=== PATIENT | female | born 1970 | race Caucasian/White ===

== ENCOUNTER 2018-03-05 06:29 | Observation (INO) | payer OTHER ==
--- NOTE | 2018-03-03 13:42 | Diagnostic Imaging Report ---
PROCEDURE: X-RAY CHEST, TWO VIEWS COMPARISON: None. INDICATIONS: PREOPERATIVE CHEST XRAY FOR CERVICAL SPINE SURGERY FINDINGS: LUNGS: No consolidations or edema.Incidental note of an azygous fissure. PLEURA: No effusions or pneumothorax. HEART \T\ MEDIASTINUM: The heart is within normal size-limits. BONES \T\ SOFT TISSUES: No acute findings. Cervical spine fusion hardware partially visualized. Bilateral breast implants. CONCLUSION: No acute thoracic abnormality. Dictated by: Reyes France M.D. on 03/03/2018 at 13:46 Electronically approved by: Reyes France M.D. on 03/03/2018 at 13:46
[2018-03-03 13:48] LABS: BASOPHILS % 0.7 % (0.0-1.0); EOSINOPHILS # (AUTO) 0.1 (0.0-0.4); EOSINOPHILS % 1.4 % (0.0-6.0); HEMATOCRIT 40.2 % (34.2-44.1); HEMOGLOBIN 13.7 g/dL (12.0-16.0); LYMPHOCYTES # (AUTO) 1.3 (1.0-3.2); LYMPHOCYTES % 31.8 % (18.0-39.1); MEAN CORPUSCULAR HEMOGLOBIN 31.4 pg (28-32); MEAN CORPUSCULAR HGB CONC 34.1 g/dL (31-35); MEAN CORPUSCULAR VOLUME 92.2 fL (81-99); MONOCYTES # (AUTO) 0.3 (0.2-0.8); MONOCYTES % 6.9 % (4.4-11.3); NEUTROPHILS # (AUTO) 2.5 (2.1-6.9); PLATELET COUNT 239 x10e3/uL (140-360); RED BLOOD COUNT 4.36 x10e6/uL (3.6-5.1); RED CELL DISTRIBUTION WIDTH 11.8 % (11.7-14.4)
[2018-03-03 14:08] LABS: INR 1.04; PARTIAL THROMBOPLASTIN TIME 25.1 seconds (23.8-35.5); PROTHROMBIN TIME 12.8 seconds (11.9-14.5)
[2018-03-03 14:18] LABS: ANION GAP 12.2 mmol/L (8-16); BLOOD UREA NITROGEN 11 mg/dL (7-26); BUN/CREATININE RATIO 14 (6-25); CALCIUM 9.6 mg/dL (8.4-10.2); CARBON DIOXIDE 27 mmol/L (22-29); CHLORIDE 107 mmol/L (98-107); CREATININE, SERUM 0.81 mg/dL (0.57-1.11); EST GLOMERULAR FILTRATION RATE > 60 ML/MIN (60-); GLUCOSE 92 mg/dL (74-118); POTASSIUM 4.2 mmol/L (3.5-5.1); SODIUM 142 mmol/L (136-145)
--- NOTE | 2018-03-03 19:26 | Diagnostic Imaging Report ---
PROCEDURE: C-SPINE AP AND LAT WITH FLEX AND EXT COMPARISON: Patients [facility], , C-SPINE 2 VIEWS AP LATERAL, 01/10/2012, 7:30. INDICATIONS: PREOPERATIVE XRAYS FOR CERVICAL SPINE SURGERY FINDINGS: C1 through T1 are visualized on the lateral view. Mild reversal of the cervical lordosis may be related muscle spasm or positioning. Re-demonstration of status post anterior fusion of C5-C6 with metallic plate and transfixing screws which are intact and in adequate alignment. There has been moderate interval bony fusion. No change in alignment in flexion view. There is approximately 2 mm anterolisthesis of C5 on C4 and C7 on C6 on extension view. The prevertebral soft tissues are not swollen. CONCLUSION: Status post anterior fusion of C5-C6 with moderate interval bony fusion. Intact hardware with adequate alignment. Minimal anterolisthesis of C5 on C4 and C7 on C6 on extension view only. Evert Nina M.D. Dictated by: Evert Nina M.D. on 03/03/2018 at 19:31 Electronically approved by: Evert Nina M.D. on 03/03/2018 at 19:31
[~2018-03-05] VITALS: Ht 154.9 cm; Wt 45.8 kg
[~2018-03-05 06:29] MED LIST: PROBIOTIC & AC1 EACH; Z.0.ALLEGRA ALLERG18 PO; Z.0.MULTIVITAMINS1 E; Z.0.PRILOSEC OTC20 M PO; Z.0.WELLBUTRIN XL300 PO
[2018-03-05] MEDS ORDERED: VANCOMYCIN 1GM/NS 250 ML 250 ML ONE (07:17)
[2018-03-05] MEDS ORDERED: ACETAMINOPHEN 1000 MG/100 ML 100 ML IV ONE (07:21)
[2018-03-05] MEDS ORDERED: LIDOCAINE HCL (LTA) 4 ML SOLN ONE (07:21)
[2018-03-05] MEDS ORDERED: GELATIN SPONGE SZ 100 ONE (07:36)
[2018-03-05] MEDS ORDERED: THROMBIN FOR SOLN 5,000 UNIT VIAL ONE (07:36)
[2018-03-05] MEDS ORDERED: BACITRACIN 50,000 UNIT VIAL ONE (07:36)
[2018-03-05] MEDS ORDERED: BUPIVACAINE 0.5%/EPI 30 ML SDV INJ ONE (07:36)
[2018-03-05] MEDS ORDERED: SCOPOLAMINE 1.5 MG PATCH ONE (08:30)
[2018-03-05] MEDS ORDERED: HYDROMORPHONE 2MG/ML INJ IV PRN (10:15)
[2018-03-05] MEDS ORDERED: MORPHINE SULFATE INJ 4 MG/ML INJ IM PRN (10:15)
[2018-03-05] MEDS ORDERED: MAGNESIUM/ALUMINUM/SIMETHICONE 30 ML UDC PO PRN (10:15)
[2018-03-05] MEDS ORDERED: ZOLPIDEM TARTRATE 5 MG TAB PO PRN (10:15)
[2018-03-05] MEDS ORDERED: PROMETHAZINE HCL (IM) 25 MG/ML VIAL IM PRN (10:15)
[2018-03-05] MEDS ORDERED: ACETAMINOPHEN 325 MG TAB PO PRN (10:15)
[2018-03-05] MEDS ORDERED: CEPACOL SORE THROAT LOZENGES PO PRN (10:15)
[2018-03-05] MEDS ORDERED: FENTANYL CITRATE/PF 100MCG/2 ML INJ ONE ×2 (10:26→18:03)
[2018-03-05] MEDS: VANCOMYCIN 1GM/NS 250 ML 250 ML IV SCH ×2 (11:00→23:29)
[2018-03-05] MEDS: LACTATED RINGER'S 1,000 ML IV SCH ×2 (11:00→20:32)
[2018-03-05 11:20] VITALS: BP 164/80
[2018-03-05 11:36] VITALS: BP 164/80
--- NOTE | 2018-03-05 13:34 | Operative Report ---
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 POSTOPERATIVE DIAGNOSIS: C6-7 disk herniation with radiculopathy below the level of previous C5-6 fusion, M50.123. PROCEDURES 1. C6-C7 anterior cervical diskectomy, microsurgical osteophyte resection and allograft fusion, 05428. 2. Preparation of [facility] cortical cancellous allograft, 84819. 3. C6-C7 anterior cervical plating with Synthes ZPN plate, 65255. 4. Removal of C5-6 plate, . 5. Exploration of C5-6 fusion, . ANESTHESIA: General. INDICATIONS: Patient is a 47-year-old woman who has previously undergone a C5-C6 anterior cervical diskectomy, fusion and plating by ne in the distant past with excellent results. She now presents with a left C7 radiculopathy due to C6-7 spondylosis and disk herniation below the level of her previous fusion. She was taken to the operating room for extension of her fusion and decompression of the C6-C7 segment. PROCEDURE: After induction of general anesthesia, the patient was placed on the operating table in the supine position. The right side of the neck was prepped and draped in sterile fashion. A small transverse incision was created on the right side of the neck superimposed on the C6-7 disk space as determined by fluoroscopy. The platysma was divided in line with the incision. A subplatysmal dissection was carried out. An avascular plane of dissection was developed and was followed medial to the sternocleidomastoid muscle and carotid sheath to the anterior border of the cervical spine. The deep cervical fascia was opened. The scar overlying the previous anterior cervical plate at C5-6 was resected. Each of the 4 locking screws and each of the 4 bone screws within the previous Synthes plate was unscrewed and removed. The plate was mobilized and removed. The underlying C5-6 fusion was explored and found to be solid. Attention was directed to the C6-7 segment. The anterior osteophyte was resected. The attachments of the longus coli muscles to the anterolateral aspects of vertebral bodies of C6 and C7 were divided. Jenkins posts were inserted into C6 and C7. The Jenkins distractor was used to distract the disk space. The anterior annulus of the disk was incised with a #11 blade, and the contents of the C6-7 disk were thoroughly evacuated with angled curets and pituitary rongeurs. The posterior osteophytes were meticulously drilled with a 2-mm cutting bur on a high-speed drill until they were completely removed. The posterior annulus of the disk, herniated disk material, and the posterior longitudinal ligament were resected layer by layer until the dura was fully exposed and decompressed. The medial aspects of the uncinate processes were resected bilaterally to further expose and decompress the origins of the corresponding nerve roots. After satisfactory decompression had been achieved, the endplates were prepared for fusion. A piece of MTF cortical cancellous allograft was cut to size and shape of the disk space and inserted into the disk space under distraction and fluoroscopic guidance. Distraction was released, and the distraction posts were removed. The plate was then screwed to the endplates of C6 and C7 with 2 pairs of 14-mm screws. All screws were locked. An excellent construct was obtained. The wound was copiously irrigated with Bacitracin solution. Meticulous hemostasis was secured. Retractor was removed. The platysma was closed with 3-0 Vicryl sutures. The skin was closed with 4-0 Monocryl sutures in subcuticular fashion. Steri-Strips and dressing were applied. The patient was awakened, extubated and taken to postanesthesia care unit in stable condition. No intraoperative complications were encountered. Estimated blood loss was 10 mL. Job#: [id number]
[2018-03-05] MEDS: OXYCODONE/ACETAMINOPHEN 5-325 1 EACH TABLET PO PRN (14:40)
[2018-03-05] MEDS: CARISOPRODOL 350 MG TAB PO PRN (14:40)
[2018-03-05 15:27] VITALS: BP 110/64
[2018-03-05] MEDS ORDERED: ONDANSETRON HCL INJ 2 MG/ML VIAL ONE (17:52)
[2018-03-05] MEDS ORDERED: PROPOFOL IV EMULSION 10 MG/ML 20 ML VIAL ONE (17:52)
[2018-03-05] MEDS ORDERED: LIDOCAINE HCL 2% LOCAL INJ 5 ML SDV VIAL INJ ONE (17:52)
[2018-03-05] MEDS ORDERED: LIDOCAINE HCL 2% JELLY 5 ML TUBE ONE (17:52)
[2018-03-05] MEDS ORDERED: GLYCOPYRROLATE INJ 1MG/ 5 ML SYR ONE (17:52)
[2018-03-05] MEDS ORDERED: ROCURONIUM BROMIDE 10 MG/ML 5ML VIAL ONE (17:52)
[2018-03-05] MEDS ORDERED: NEOSTIGMINE 5 MG/5ML SYR ONE (17:52)
[2018-03-05] MEDS ORDERED: DEXAMETHASONE SOD PHOS INJ 4 MG/ML VIAL ONE (17:52)
[2018-03-05] MEDS ORDERED: PHENYLEPHRINE HCL 1% 10 MG/ML VIAL ONE (17:52)
[2018-03-05] MEDS ORDERED: SEVOFLURANE INHAL SOLN 250 ML PEN BTL ONE (17:52)
[2018-03-05] MEDS ORDERED: MIDAZOLAM HCL 2 MG/2 ML VIAL ONE (18:03)
[2018-03-05] MEDS: ONDANSETRON HCL INJ 2 MG/ML VIAL IV PRN (19:28)
[2018-03-05 20:00] VITALS: BP_SYST 110; BP_DIAS 64; BP_DIAS 65
[2018-03-05] MEDS ORDERED: SODIUM CHLORIDE 0.9% 50ML 50 ML ONE (20:17)
[2018-03-05] MEDS ORDERED: NALOXONE HCL INJ 0.4 MG/ML AMP ONE (21:09)
[2018-03-05] MEDS ORDERED: SODIUM CHLORIDE 0.9% 1000ML 1,000 ML IV STA (21:48)
[2018-03-05 21:51] VITALS: BP 133/76
[2018-03-06] VITALS: BP 122/65
[2018-03-06] MEDS: LACTATED RINGER'S 1,000 ML IV SCH (02:50)
[2018-03-06] MEDS: OXYCODONE/ACETAMINOPHEN 5-325 1 EACH TABLET PO PRN ×2 (03:02→09:55)
[2018-03-06 04:00] VITALS: BP 107/58
[2018-03-06] MEDS ORDERED: PANTOPRAZOLE SOD 40 MG TABEC PO SCH (07:30)
[2018-03-06] MEDS: ONDANSETRON HCL INJ 2 MG/ML VIAL IV PRN (07:57)
[2018-03-06] MEDS: CARISOPRODOL 350 MG TAB PO PRN (07:58)
[2018-03-06 08:00] VITALS: BP 112/71
[2018-03-06 08:11] VITALS: BP 112/71
[2018-03-06] MEDS ORDERED: NORCO 7.5-3251 EACH PO (08:36)
[2018-03-06] MEDS ORDERED: LORATADINE 10 MG TAB PO SCH (09:00)
[2018-03-06] MEDS ORDERED: BUPROPION HCL 150 MG TABCR PO SCH (09:00)
[2018-03-06] MEDS ORDERED: LACTOBACILLUS ACIDOPHILUS CAPSULE PO SCH (09:00)
--- NOTE | 2018-03-06 10:36 | Diagnostic Imaging Report ---
PROCEDURE: X-RAY CERVICAL SPINE, TWO VIEWS COMPARISON:None. INDICATIONS:S/P CERVICAL FUSION FINDINGS: See conclusion. CONCLUSION: AP and lateral views of the cervical spine from the skull base to the top of T1 show anterior cervical spine surgical intervertebral body disc spacer and oblique transfixing screws at C6-C7. Old fusion at C5-C6 is noted and there are tracts of the previous hardware that has been removed. The visualized vertebral bodies are well-aligned. There is mild pre-vertebral soft-tissue swelling consistent with recent surgery. Adam Alvarez D.O. Dictated by: Adam Alvarez D.O. on 03/06/2018 at 10:40 Electronically approved by: Adam Alvarez D.O. on 03/06/2018 at 10:40
== END 2018-03-06 10:59 | disposition home or self-care (01) ==
LOC: OR 06:29 → PACU V 10:58 → IMCU 11:00
PROVIDERS: ADMIT Neurological Surgery; ATTEND Neurological Surgery
DX: M50.023 Cervical disc disorder at C6-C7 level with myelopathy (principal); R12 Heartburn; E03.9 Hypothyroidism, unspecified; E06.3 Autoimmune thyroiditis; M50.122 Cervical disc disorder at C5-C6 level with radiculopathy; K21.9 Gastro-esophageal reflux disease without esophagitis
CPT/HCPCS: 20931; 22551; 22830; 22855; 36415; 71046; 72040; 72050; 77003; 80048; 81025; 85025; 85610; 85730; 86850; 86900; 88300; 88304; 93005; G0378 ×2; J1100; J1170; J2001 ×2; J2250; J2310; J2370; J2405 ×2; J2550; J3370; J3490; J7120; S0164 ×2